=== PATIENT | female | born 1965 | race Caucasian/White ===

== ENCOUNTER 2017-01-07 06:17 | Inpatient (IN) ==
--- NOTE | 2017-01-04 21:34 | Discharge Summary ---
<CarrollclovisshoaibJudy Darlene - Last Filed: 01/04/17 21:32> Date of Encounter: 01/04/17 - Discharge Diagnosis (1) Arthritis of knee Priority: Primary Status: Acute (2) HTN (hypertension) Priority: Secondary Status: Chronic Qualifiers: Hypertension type: essential hypertension (3) Obesity Priority: Secondary Status: Chronic Qualifiers: Obesity type: unspecified obesity type Obesity severity: unspecified obesity severity Qualified Code(s): E66.9 - Obesity, unspecified - Discharge Medications Home Medications: Aspirin Enteric Coated [Aspirin EC] 325 mg PO DAILY #21 tablet. 01/04/17 [Rx] OxyCODONE Immed Rel [Roxicodone 5 MG] 5 - 10 mg PO Q6HR PRN #40 tablet 01/04/17 [Rx] Allergies/Adverse Reactions: Allergies naproxen [From Aleve] Allergy (Verified 04/07/16 10:56) [place] Primary care physician: PCP NO - Patient Status Disposition: Home, Self-Care Condition: Good - Discharge Instructions Follow Up With: [place],PCP [Primary Care Provider] - - Hospital Course Hospital course: Ms. Matthews is a 51 year old female - Time Spent with Patient Total time spent providing and/or coordinating discharge services: <Colten Castrejon - Last Filed: 01/08/17 08:09> Date of Encounter: 01/08/17 Time of Encounter: 08:09 - Discharge Diagnosis (1) Arthritis of knee Priority: Primary Status: Acute (2) HTN (hypertension) Priority: Secondary Status: Chronic Qualifiers: Hypertension type: unspecified secondary hypertension Qualified Code(s): I15.9 - Secondary hypertension, unspecified; I15 - Secondary hypertension (3) Obesity Priority: Secondary Status: Chronic Qualifiers: Obesity type: unspecified obesity type Obesity severity: unspecified obesity severity Qualified Code(s): E66.9 - Obesity, unspecified Primary care physician: PCP NO - Patient Status Functional capacity at discharge: uses cane/walker Overall status at discharge: patient is progressing back to baseline - Hospital Course Hospital course: Ms. Matthews is a 51 year old female The patient had an uneventful postoperative course. They received antibiotics and physical therapy and were discharged in stable condition. There will follow -up in the office in 2 weeks. Aspirin DVT prophylaxis - Time Spent with Patient Total time spent providing and/or coordinating discharge services:
[2017-01-07] MEDS ORDERED: Vancomycin 2,000 MG in D5% in Water 500 ML IVPB ONE (06:40)
[2017-01-07] MEDS ORDERED: Ringers Solution, Lactated 1,000 ML IVC SCH (06:45)
--- NOTE | 2017-01-07 06:47 | History & Physical Report ---
Date of Encounter: 01/07/17 Time of Encounter: 06:46 24 Hour HP Update - Instructions Instructions: If the History and Physical is less than 30 days old and was completed prior to A.M. admission and or procedure and has NOT been updated on calendar day of procedure please complete this update prior to performing procedure. - Update Patient reports changes in Medical Condition: No Changes in examination, assessment, or condition: No Changes in Medication: No Preop tests/diagnostics Reviewed: Yes Surgery Remains Indicated: Yes Consent for Planned Operative Procedure(s) Verified: Yes - Pre-Operative Checklist Preoperative Checklist Indicated: No Prophylactic Antibiotic Ordered: Yes Is VTE Prophylaxis Indicated?: Yes
[2017-01-07] MEDS ORDERED: Albuterol 2.5 MG/3 ML NEBULIZER IH ONE ×2 (06:51→08:28)
--- NOTE | 2017-01-07 07:01 | Anesthesia Evaluation PreOp ---
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 01/04/17 [Rx] OxyCODONE Immed Rel [Roxicodone 5 MG] 5 - 10 mg PO Q6HR PRN #40 tablet 01/04/17 [Rx] Allergies naproxen [From Aleve] Allergy (Verified 04/07/16 10:56) Hives - Meds/Allergy Pre-op Review Medications Reviewed: Yes Allergies Reviewed: Yes Beta Blockers on Current Med List: No Anesthesia Results - Labs Laboratory Tests 12/29/16 12/29/16 12/29/16 15:35 15:35 15:35 Hgb 13.8 Hct 43.4 Plt Count 238 PT 10.7 INR 1.0 APTT 30.8 Sodium 143 Potassium 4.2 Creatinine 0.78 - Imaging EKG: report reviewed (sr) Anesthesia Exam O2 Sat Height 1.73 m Weight 129.274 kg Height: 1.73 Weight: 129 NPO (# of Hours): >8 - HEENT Pupil (Motor): Pupils equal, EOMI Mallampati: I Teeth: Normal Denture Type: Lower: Partial Oral Opening: Greater than 3 - ASSISTANT TO THE VICE PRESIDENT LOC: Oriented ASSISTANT TO THE VICE PRESIDENT Motor: Normal RUE, Normal LUE, Normal RLE, Normal LLE, Normal Face ASSISTANT TO THE VICE PRESIDENT Sensory: Normal: RUE, LUE, RLE, LLE, Face - Cardiac Rhythm: Regular Murmur: None - Pulmonary Breath Sounds: bilateral Clear Respiratory Effort: Symmetrical Anesthesia Assess/Plan ASA Score: 3 Modified Sharath Scale for Level of Consciousness: Cooperative, oriented, and tranquil Anesthetic Plan: General, Regional Monitoring Plan: Standard Monitors Recovery Plan: PACU
[2017-01-07] MEDS ORDERED: *HR* Rocuronium Bromide 50 MG/5 ML VIAL ONE (07:03)
[2017-01-07] MEDS ORDERED: Ondansetron 4 MG/2 ML VIAL ONE (07:03)
[2017-01-07] MEDS ORDERED: Lidocaine -MPF 4% 5 ML AMPUL ONE (07:03)
[2017-01-07] MEDS ORDERED: Lidocaine -MPF 2% 2 ML VIAL ONE (07:03)
[2017-01-07] MEDS ORDERED: *HR* Succinylcholine 200 MG/10 ML VIAL IVP ONE (07:03)
[2017-01-07] MEDS ORDERED: *HR* Midazolam HCl 2 MG/2 ML VIAL ONE (07:03)
[2017-01-07] MEDS ORDERED: Dexamethasone 4 MG/ML VIAL ONE ×2 (07:03→07:08)
[2017-01-07] MEDS ORDERED: *HR* Propofol 200 MG/20 ML VIAL IVP ONE ×2 (07:03→08:18)
[2017-01-07] MEDS ORDERED: *HR* FentaNYL (PF) 100 MCG/2 ML VIAL ONE (07:03)
[2017-01-07] MEDS ORDERED: ROPIVACAINE HCL/PF 0.5% 30 ML VIAL ONE (07:14)
[2017-01-07] MEDS ORDERED: CloNIDine Patch 0.1 MG PATCH (WEEKLY) TD SCH (07:15)
[2017-01-07] MEDS ORDERED: Ketorolac 30 MG/ML VIAL ONE (08:04)
[2017-01-07] MEDS ORDERED: Ketamine *HR* 500 MG/10 ML MDV ONE (08:04)
[2017-01-07] MEDS ORDERED: *HR* HYDROmorphone 2 MG/ML SYRINGE ONE (08:23)
--- NOTE | 2017-01-07 08:26 | Anesthesia Procedures ---
Date of Encounter: 01/07/17 Time of Encounter: 07:40 Procedures: Anesthesia - Nerve Block Procedure Date: 01/07/17 Time: 07:40 Allergies/Adv Reactions: naproxen Pre-op Diagnosis: left knee arthritis Surgical Procedure: left total knee Checklist: Correct Patient Identifier, Correct procedure, History checked Correct side: Left Blood Thinner: No Monitor Applied: EKG, BP, Pulse Oximetry Supplemental Oxygen via Nasal Cannula (L/min): 2 Sedation: Versed (mg): 2 Sedation: Fentanyl (mcg): 100 Indication: Post Op Analgesia Pre-op Neuro Deficits: No Block Type: Femoral, Other (ipack ) Catheter placed: No Sterile Technique: Yes Ultrasound used: Yes Anatomy identified: Yes Visual spread of Local: Yes Neuro Stimulation: Yes Nerve Stimulator Range: 0.2 - 0.4 mA Blood on Needle Aspiration: No Smooth Injection of Local: Yes Pain with Injection of Local: No Prep: Chlorhexadine Needle: 22 x 50 mm Stimuplex Local: Ropivacaine (0.5% with decadron 8mg 30ml ), Other (bupivicaine 0.25% with 8 decadron -30ml ) Volume (cc): 60 Number of Attempts: 1 Complications: None/effective block Vitals: Vital Signs - Last 8 Hours Temp Pulse Resp BP Pulse Ox 01/07/17 07:46 99 18 140/84 94 01/07/17 07:36 92 18 129/93 97 01/07/17 07:04 98.0 F 97 18 157/84 92 Intake and Output 01/06/17 01/07/17 01/07/17 23:59 07:59 15:59 Other: Weight 129.274 kg Patient Weight 01/07/17 23:59 Weight 129.274 kg Comments: per dr. lee request
[2017-01-07] MEDS ORDERED: *HR* Promethazine 25 MG/ML VIAL IVP PRN (08:28)
[2017-01-07] MEDS ORDERED: *HR* Labetalol 20 MG/4 ML SYRINGE IVP PRN (08:28)
[2017-01-07] MEDS ORDERED: *HR* HYDROmorphone (PF) 1 MG/ML SYRINGE IVP PRN ×2 (08:28→10:35)
--- NOTE | 2017-01-07 08:40 | Orthopedic Operative Note ---
Date of procedure: 01/07/17 Pre-op diagnosis: Left knee arthritis Post-op diagnosis: same Procedure: Procedure: Left Total knee replacement Estimated blood loss: 200 cc Hardware: Metal and polyethylene replacement. Arthrex Femur: 6 Tibia: 5 PS insert: 10 Patella: 37 Exam Under anesthesia: Loss of full extension 5 degrees flexion 110 degrees no instability Procedural Notes: Grade 4 arthritic changes medial compartment grade 3 arthritic changes patellofemoral joint Operative procedure: The patient was brought to the operating room and placed on the operating room table. After general anesthesia was administered the operative knee was examined. Findings were noted in the exam under anesthesia. The operative extremity was prepped and draped in sterile surgical fashion. The patient received IV antibiotics prior to skin incision. A standard midline incision was made centered over the patella. The incision was made through the skin and subcutaneous tissue. A medial parapatellar tendon approach was performed. Care was taken to preserve tissue along the medial aspect of the patella. And to protect the patella tendon. The deep MCL was released off the medial tibia. The infra patella fat pad was excised. Knee was brought into flexion. Patient noted to have grade 4 arthritic changes medial compartment grade 3 arthritic changes patellofemoral joint. The entry hole was made for the intramedullary femoral guide. The guide was seated in 6 degrees of valgus. Anterior cut was made followed by the distal cut. The ACL the PCL the medial and the lateral menisci were excised. The tibia was subluxed forward. The entry hole was made for the intramedullary tibial guide. Guide was seated to resect 2 mm off the more abnormal side. The knee was brought into flexion the distal femur was sized to a 6. The femoral guide was seated, the anterior cut was made followed by the posterior condylar cut, followed by the chamfer cuts. The finishing guide was seated the box cut was made and the lug holes were drilled. The tibia was sized to a 5, the tibial tray was seated and prepared with the large drill followed by the fin cutter. Trial reduction revealed full extension no varus valgus instability with the appropriate the 10 PS [place]. The patella was everted and cut was made at the level of the insertion of the quadriceps and patella tendon. The patella was sized to a 37 the guide was seated and the lug holes are drilled. Trial reduction revealed excellent patella tracking. All trial components were removed all bony surfaces were irrigated. The tibia was cemented first followed by the femur. The 10 PS [place] was seated and the knee was brought into full extension. The patella was cemented and held in place with the patellar holding clamp. After the cement had hardened, the knee sat for 2 minutes with a Betadine saline solution. The knee was then irrigated out with 2 L of pulse irrigation. The extensor mechanism was closed with #2 FiberWire suture and #2 PDS suture. The subcutaneous tissue was then irrigated and closed deep with #1 PDS suture superficially with 0 PDS suture and skin was closed with skin ernst. The patient was then placed in a sterile dressing and a postoperative brace extubated and transferred to recovery room in stable condition. Anesthesia: ROSIE Surgeon: Colten Castrejon Metrology Technician: Judy Rodrigez Condition: stable Disposition: PACU
[2017-01-07] MEDS ORDERED: *HR* Metoprolol 5 MG/5 ML VIAL IVP ONE (09:44)
[2017-01-07 09:47] LABS: Hematocrit 41.1 % (35.3-44.9); Hemoglobin 13.4 g/dL (11.5-15.4)
[2017-01-07] MEDS ORDERED: *HR* Metoprolol 5 MG/5 ML VIAL IVP PRN (09:47)
[2017-01-07] MEDS ORDERED: Naloxone 0.4 MG/ML INJ IVP PRN (10:35)
[2017-01-07] MEDS ORDERED: *HR* OxyCODONE Immed Rel 5 MG TABLET PO PRN (10:35)
[2017-01-07] MEDS ORDERED: Sennosides 8.6 MG TABLET PO PRN (10:35)
[2017-01-07] MEDS ORDERED: Ondansetron 4 MG/2 ML VIAL IVP PRN (10:35)
[2017-01-07] MEDS ORDERED: Temazepam 15 MG CAPSULE PO PRN (10:35)
[2017-01-07] MEDS ORDERED: MOM Conc 10 ML UD.LIQ PO PRN (10:35)
[2017-01-07] MEDS: *HR* OxyCODONE Immed Rel 5 MG TABLET PO PRN ×2 (11:58→18:55)
[2017-01-07] MEDS: *HR* Enoxaparin 30 MG/0.3 ML SYRINGE SQ SCH (17:25)
[2017-01-07] MEDS: ceFAZolin 2,000 MG in D5% in Water 100 ML IVPB SCH (17:25)
[2017-01-07] MEDS ORDERED: *HR* Enoxaparin 30 MG/0.3 ML SYRINGE SQ SCH (18:00)
[2017-01-07] MEDS: Ringers Solution, Lactated 1,000 ML IVC SCH ×2 (21:51→23:30)
[2017-01-08] MEDS: *HR* OxyCODONE Immed Rel 5 MG TABLET PO PRN ×4 (00:13→16:47)
[2017-01-08] MEDS: ceFAZolin 2,000 MG in D5% in Water 100 ML IVPB SCH (00:13)
[2017-01-08 05:29] LABS: Hematocrit 37.3 % (35.3-44.9); Hemoglobin 12.5 g/dL (11.5-15.4)
[2017-01-08 05:52] LABS: BUN/Creatinine Ratio 15 (6-26); Blood Urea Nitrogen 11 mg/dL (7-20); Calcium 9.2 mg/dL (8.6-10.8); Carbon Dioxide 25 mEq/L (19-29); Chloride 104 mEq/L (98-109); Glucose 123 mg/dL (70-99); Osmolality,Calculated 285 (280-300); Potassium 4.3 mEq/L (3.5-4.5); Sodium 137 mEq/L (136-145); eGFR For African Americans > 60 (> 60); eGFR For Non-African Americans > 60 (> 60)
[2017-01-08] MEDS: *HR* Enoxaparin 30 MG/0.3 ML SYRINGE SQ SCH ×2 (06:10→16:47)
--- NOTE | 2017-01-08 08:10 | Orthopedics Progress Note ---
Date of Encounter: 01/08/17 Time of Encounter: 08:09 - Assessment and Plan (1) Arthritis of knee Current Visit: No Status: Acute (2) HTN (hypertension) Current Visit: No Status: Chronic Qualifiers: Hypertension type: unspecified secondary hypertension Qualified Code(s): I15.9 - Secondary hypertension, unspecified; I15 - Secondary hypertension (3) Obesity Current Visit: No Status: Chronic Qualifiers: Obesity type: unspecified obesity type Obesity severity: unspecified obesity severity Qualified Code(s): E66.9 - Obesity, unspecified Subjective Interval history: Patient was seen this morning doing well without complaints. Afebrile vital signs stable. Operative extremity: Neurovascularly intact Dressing clean dry and intact Calves nontender Assessment and plan: Continue with postoperative care Hematocrit 37 discharged today Objective Vital signs: Vital Signs Temp Pulse Resp BP Pulse Ox 01/08/17 07:43 97.9 F 99 18 128/75 97 01/08/17 05:17 98.2 F 93 16 138/85 97 01/08/17 01:24 98.0 F 101 17 122/78 96 01/07/17 21:40 98.4 F 97 16 125/79 92 01/07/17 18:22 98 14 142/95 95 01/07/17 15:49 97.7 F 98 14 142/95 95 01/07/17 13:40 97.8 F 92 18 135/92 96 01/07/17 12:41 97.7 F 97 18 133/93 95 01/07/17 11:40 97.4 F L 94 16 136/87 96 01/07/17 11:05 97.4 F L 96 17 138/88 95 01/07/17 10:38 97.6 F 95 16 136/88 98 01/07/17 10:37 97.6 F 95 16 136/88 98 01/07/17 10:35 97.6 F 95 16 136/88 98 01/07/17 10:10 97.1 F L 98 16 143/96 96 01/07/17 10:00 97.1 F L 95 16 146/95 95 01/07/17 09:50 97.1 F L 92 16 140/92 96 01/07/17 09:40 97.1 F L 110 16 139/80 96 01/07/17 09:30 111 16 137/92 99 01/07/17 09:20 109 20 130/83 96 01/07/17 09:10 97.3 F L 114 20 123/77 96 Intake and Output 01/07/17 01/08/17 01/08/17 23:59 07:59 15:59 Intake Total 2960 / 2960 Balance 2960 / 2960 Intake: IV Fluids 100 / 100 Ancef 2,000 MG In 100 / 100 Dextrose 5% 100 ML @ 200 mls/hr IVPB Q8HR [facility] Rx#: [id number] Oral 2860 / 2860 Other: Meal clear liquid # Voids 1 Weight 137.5 kg Patient Weight 01/08/17 23:59 Weight 137.5 kg - Labs CBC & BMP: 01/08/17 04:49 01/08/17 04:49 Labs: Abnormal lab results Glucose 123 mg/dL (70-99) H 01/08/17 04:49 - VTE Documentation of Mechanical Device: Venous foot pump, device Consult Discharge Plan - Plan Referrals: NO,PCP [Primary Care Provider] -
[2017-01-08 16:05] VITALS: BP 152/97
== END 2017-01-08 17:31 | disposition home or self-care (01) | DRG 302 ==
LOC: SAMDAY 06:17 → 3NENU 10:35
PROVIDERS: ADMIT Orthopaedic Surgery; ATTEND Orthopaedic Surgery